=== PATIENT | male | born 1955 | race Caucasian/White ===

== ENCOUNTER 2017-09-11 05:28 | Observation (INO) | payer OTHER ==
--- NOTE | 2017-09-10 14:32 | Diagnostic Imaging Report ---
PROCEDURE: X-RAY CHEST, TWO VIEWS COMPARISON: Chest x-ray 04/16/17. INDICATIONS: PRE OPERATIVE CHEST X-RAY FOR LUMBAR SPINE SURGERY FINDINGS: LUNGS: Well-inflated and clear. No mass or infiltrate. Vascular markings are normal. PLEURA: No effusions or pneumothorax. HEART \T\ MEDIASTINUM: The heart is within normal size-limits. No hilar lymphadenopathy. BONES \T\ SOFT TISSUES: No abnormalities CONCLUSION: Stable chest. No active disease. Dictated by: Leslie Scott M.D. on 09/10/2017 at 14:33 Electronically approved by: Leslie Scott M.D. on 09/10/2017 at 14:33
[2017-09-10 14:36] LABS: BASOPHILS # (AUTO) 0.1 (0.0-0.1); BASOPHILS % 0.4 % (0.0-1.0); EOSINOPHILS # (AUTO) 0.4 (0.0-0.4); EOSINOPHILS % 3.7 % (0.0-6.0); HEMATOCRIT 45.8 % (38.2-49.6); HEMOGLOBIN 15.9 g/dL (14.0-18.0); LYMPHOCYTES # (AUTO) 2.5 (1.0-3.2); LYMPHOCYTES % 21.6 % (18.0-39.1); MEAN CORPUSCULAR HEMOGLOBIN 31.9 pg (28-32); MEAN CORPUSCULAR HGB CONC 34.7 g/dL (31-35); MEAN CORPUSCULAR VOLUME 91.8 fL (81-99); MONOCYTES # (AUTO) 0.9 (0.2-0.8); MONOCYTES % 7.5 % (4.4-11.3); NEUTROPHILS # (AUTO) 7.5 (2.1-6.9); NEUTROPHILS % 66.4 % (38.7-80.0); PLATELET COUNT 252 x10e3/uL (140-360); RED BLOOD COUNT 4.99 x10e6/uL (4.3-5.7); RED CELL DISTRIBUTION WIDTH 12.3 % (11.7-14.4)
[2017-09-10 14:46] LABS: INR 1.04; PARTIAL THROMBOPLASTIN TIME 28.7 seconds (23.8-35.5); PROTHROMBIN TIME 12.8 seconds (11.9-14.5)
[2017-09-10 14:54] LABS: ANION GAP 17.7 mmol/L (8-16); BLOOD UREA NITROGEN 20 mg/dL (7-26); BUN/CREATININE RATIO 22 (6-25); CALCIUM 9.2 mg/dL (8.4-10.2); CARBON DIOXIDE 23 mmol/L (22-29); CHLORIDE 104 mmol/L (98-107); CREATININE, SERUM 0.93 mg/dL (0.72-1.25); EST GLOMERULAR FILTRATION RATE > 60 ML/MIN (60-); GLUCOSE 99 mg/dL (74-118); POTASSIUM 4.7 mmol/L (3.5-5.1); SODIUM 140 mmol/L (136-145)
[~2017-09-11] VITALS: Ht 170.2 cm; Wt 103.9 kg
[~2017-09-11 05:28] MED LIST: SIMVASTATIN40 MG PO; VALSARTAN
--- OUTSIDE RECORDS SUMMARY | 2017-09-11 05:30 | XMS REPORT ---
[facility] Address Unknown Phone Unavailable Care Team Providers Care Clasp Machine Operator Name Role Phone PETER CHATTERJEE Unavailable Unavailable ROGER LANGLEY Unavailable Unavailable Problems This patient has no known problems. Allergies, Adverse Reactions, Alerts This patient has no known allergies or adverse reactions. Medications This patient has no known medications. Results Test Description Test Time Test Comments Text Results Atomic Results Result Comments CHEST 2 VIEWS [place] [address] Patient Name: YOVANI LOPEZ MR #: [id number] : 1955 Age/Sex: 62/M Req #: [id number] Adm Physician: Ordered by: PETER CHATTERJEE MD Report #: [id number] Location: OR Room/Bed: Procedure: [id number] DX/CHEST 2 VIEWS Exam Date: Exam Time: REPORT STATUS: Signed PROCEDURE: X-RAY CHEST, TWO VIEWS COMPARISON: Chest x -ray 04/16/17. INDICATIONS: PRE OPERATIVE CHEST X-RAY FOR LUMBAR SPINE SURGERY FINDINGS: LUNGS: Well-inflated and clear. No mass or infiltrate. Vascular markings are normal. PLEURA: No effusions or pneumothorax. HEART T MEDIASTINUM: The heart is within normal size-limits. No hilar lymphadenopathy. BONES T SOFT TISSUES: No abnormalities CONCLUSION: Stable chest. No active disease. Dictated by : Yoselyn Scott M.D. on 09/10/2017 at 14:33 Electronically approved by : Yoselyn Scott M.D. on 09/10/2017 at 14:33 Dictated By: YOSELYN SCOTT MD 32 COPY TO: PETER CHATTERJEE MD CHEST 2 VIEWS [place] [address] Patient Name: YOVANI LOPEZ MR #: [id number] : 1955 Age/Sex: 61/M Req #: [id number] Adm Physician: Ordered by: ROGER LANGLEY MD Report #: [id number] Location: OR Room/Bed: Procedure: [id number] DX/CHEST 2 VIEWS Exam Date: Exam Time: REPORT STATUS: Signed PROCEDURE: X-RAY CHEST, TWO VIEWS COMPARISON: None. INDICATIONS: PRE OPERATIVE CHEST X-RAY CYSTOSCOPY FINDINGS: LUNGS: No consolidations or edema. PLEURA: No effusions or pneumothorax. HEART T MEDIASTINUM: The heart is within normal size- limits. BONES T SOFT TISSUES: No focal findings. CONCLUSION : No acute thoracic abnormality. Dictated by: Yoselyn Scott M.D. on 04/16/2017 at 14:52 Electronically approved by: Yoselyn Scott M.D. on 04/16/2017 at 14:52 Dictated By: YOSELYN SCOTT MD 51 Transcribed By: ARUN on 04/16/171451 COPY TO: ROGER LANGLEY MD
[2017-09-11] MEDS ORDERED: CEFAZOLIN SOD 2 GM/D5W 50ML 50 ML IV ONE (05:53)
[2017-09-11] MEDS ORDERED: THROMBIN FOR SOLN 5,000 UNIT VIAL ONE (06:47)
[2017-09-11] MEDS ORDERED: GELATIN SPONGE SZ 100 ONE (06:47)
[2017-09-11] MEDS ORDERED: BACITRACIN 50,000 UNIT VIAL ONE (06:48)
[2017-09-11] MEDS ORDERED: ACETAMINOPHEN 1000 MG/100 ML 100 ML IV ONE (07:20)
[2017-09-11] MEDS ORDERED: LIDOCAINE HCL (LTA) 4 ML SOLN ONE (07:20)
[2017-09-11] MEDS ORDERED: ONDANSETRON HCL INJ 2 MG/ML VIAL IV PRN (09:15)
[2017-09-11] MEDS ORDERED: HYDROMORPHONE 2MG/ML INJ IV PRN (09:15)
[2017-09-11] MEDS ORDERED: CARISOPRODOL 350 MG TAB PO PRN (09:15)
[2017-09-11] MEDS ORDERED: PROMETHAZINE HCL (IM) 25 MG/ML VIAL IM PRN (09:15)
[2017-09-11] MEDS ORDERED: ACETAMINOPHEN 325 MG TAB PO PRN (09:15)
[2017-09-11] MEDS ORDERED: MAGNESIUM/ALUMINUM/SIMETHICONE 30 ML UDC PO PRN (09:15)
[2017-09-11] MEDS ORDERED: MORPHINE SULFATE 5 MG/ML VIAL IM PRN (09:15)
[2017-09-11] MEDS ORDERED: HYDROMORPHONE 1MG/1ML INJ ONE (09:26)
[2017-09-11 10:47] VITALS: BP 117/55
[2017-09-11 10:57] VITALS: BP 117/55
--- NOTE | 2017-09-11 11:05 | Operative Report ---
DATE OF PROCEDURE: September 11, 2017 PREOPERATIVE DIAGNOSES 1. 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 2. Lumbar lateral recess stenosis with neurogenic claudication, M48.062. POSTOPERATIVE DIAGNOSES 1. 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 2. Lumbar lateral recess stenosis with neurogenic claudication, M48.062. PROCEDURES: Right L4-5 laminotomy, medial facetectomy, and microsurgical resection of intraspinal extradural synovial cyst, [id number]. ANESTHESIA: General. INDICATIONS: The patient is a man who presents with a right L5 radiculopathy due to L4-L5 lateral recess stenosis and had intraspinal extradural synovial cyst emerging from the right L4-5 facet joint and was taken to the operating room for microsurgical decompression of that nerve root. PROCEDURE: After induction of anesthesia, the patient was placed on the operating table in prone position over a Agapito frame. Lumbar region was prepped and draped in sterile fashion. A preoperative x-ray was obtained. A small midline incision was created. Lumbar fascia was opened to the right of midline, and subperiosteal dissection was carried out to expose the right side of the L4 and L5 laminae and the medial aspect of facet joint. A 2nd x-ray confirmed correct localization. The operating microscope was brought in. A high-speed drill equipped with mary bur was used to drill the inferior aspect of lamina of L4 and the superior rim of lamina of L5 and medial aspect of the L4-5 hypertrophic facet joint. The ligamentum flavum was carefully resected and intraspinal synovial cyst, which was attached to the ligamentum flavum, was resected in a piecemeal fashion with a 2-mm Kerrison rongeur as it was carefully dissected free of the dura. Complete resection was achieved and the L5 nerve root was fully decompressed. Meticulous hemostasis was secured. The wound was closed in multiple layers with 0 and 2-0 Vicryl sutures. The skin was closed with 3-0 Monocryl sutures in subcuticular fashion. Steri-strips and dressing were applied. The patient was awakened, extubated, and taken to postanesthesia care unit in stable condition. No intraoperative complications were encountered. Estimated blood loss was 10 mL. Job#: [id number] VAS
[2017-09-11] MEDS: LACTATED RINGER'S 1,000 ML IV SCH ×2 (11:21→15:44)
[2017-09-11 11:30] VITALS: BP 117/55
[2017-09-11 12:29] VITALS: BP 121/62
[2017-09-11] MEDS ORDERED: CEFAZOLIN SOD 1 GM/NS 50ML 50 ML IV SCH (14:00)
[2017-09-11] MEDS ORDERED: FENTANYL CITRATE/PF 100MCG/2 ML INJ ONE (14:10)
[2017-09-11] MEDS ORDERED: MIDAZOLAM HCL 2 MG/2 ML VIAL ONE (14:10)
[2017-09-11] MEDS ORDERED: EPHEDRINE SULFATE INJ 50 MG/10 ML SYR ONE (14:17)
[2017-09-11] MEDS ORDERED: GLYCOPYRROLATE INJ 1MG/ 5 ML SYR ONE (14:17)
[2017-09-11] MEDS ORDERED: DESFLURANE 240 ML BTL INH ONE (14:17)
[2017-09-11] MEDS ORDERED: NEOSTIGMINE 5 MG/5ML SYR ONE (14:17)
[2017-09-11] MEDS ORDERED: ROCURONIUM BROMIDE 10 MG/ML 5ML VIAL ONE (14:17)
[2017-09-11] MEDS ORDERED: ACETAMINOPHEN 1000 MG/100 ML IV ONE (14:17)
[2017-09-11] MEDS ORDERED: PROPOFOL IV EMULSION 10 MG/ML 20 ML VIAL ONE (14:17)
[2017-09-11] MEDS ORDERED: DEXAMETHASONE SOD PHOS INJ 4 MG/ML VIAL ONE (14:17)
[2017-09-11] MEDS ORDERED: LIDOCAINE HCL 2% LOCAL INJ 5 ML SDV VIAL INJ ONE (14:17)
[2017-09-11] MEDS ORDERED: ONDANSETRON HCL INJ 2 MG/ML VIAL ONE (14:17)
[2017-09-11] MEDS: OXYCODONE/ACETAMINOPHEN 5-325 1 EACH TABLET PO PRN ×2 (16:07→22:34)
[2017-09-11] MEDS: CEFAZOLIN SOD 1 GM VIAL IV SCH (16:07)
[2017-09-11] MEDS ORDERED: BUPIVACAINE 0.5%/EPI 30 ML SDV INJ ONE (16:15)
[2017-09-11 16:38] VITALS: BP 124/69
[2017-09-11 20:31] VITALS: BP 125/66
[2017-09-11] MEDS ORDERED: SIMVASTATIN 40 MG TAB PO SCH (21:00)
[2017-09-11] MEDS ORDERED: ZOLPIDEM TARTRATE 5 MG TAB PO PRN (21:00)
[2017-09-12 00:30] VITALS: BP 122/69
[2017-09-12] MEDS: LACTATED RINGER'S 1,000 ML IV SCH ×2 (00:52→10:11)
[2017-09-12] MEDS: CEFAZOLIN SOD 1 GM VIAL IV SCH ×2 (00:52→08:58)
[2017-09-12 04:00] VITALS: BP 116/57
[2017-09-12] MEDS ORDERED: NORCO 7.5-3251 EACH PO (07:41)
[2017-09-12 08:00] VITALS: BP 133/59
[2017-09-12] MEDS: OXYCODONE/ACETAMINOPHEN 5-325 1 EACH TABLET PO PRN (09:10)
[2017-09-12 11:00] VITALS: BP 134/63
== END 2017-09-12 12:24 | disposition home or self-care (01) ==
LOC: OR 05:28 → IMCU 10:08
PROVIDERS: ADMIT Neurological Surgery; ATTEND Neurological Surgery
DX: M48.061 Spinal stenosis, lumbar region without neurogenic claudication (principal); M71.38 Other bursal cyst, other site; I10 Essential (primary) hypertension; E78.5 Hyperlipidemia, unspecified; J45.909 Unspecified asthma, uncomplicated
CPT/HCPCS: 36415; 63267; 69990; 71046; 72020; 80048; 85025; 85610; 85730; 86850; 86870; 86880; 86900; 86905; 88304; 93005; 99001; G0378 ×2; J0690 ×2; J1100; J1170; J2001; J2250; J2270; J2405; J7120 ×2